=== PATIENT | male | born 1985 | race African-American/Black ===

== ENCOUNTER 2018-05-09 13:30 | Emergency (ER) | payer OTHER, MEDICAID, SELFPAY ==
[2018-05-09 13:39] VITALS: BP 122/79; PULSE 79; RESP 16; TEMP 37; O2SAT 99; BMI 36.2
--- NOTE | 2018-05-09 14:17 | ED_ITS ---
HPI - URI/Sore Throat <FELIPE Scruggs - Last Filed: 05/09/18 22:06> General Chief Complaint: Upper Respiratory Symptoms Stated Complaint: SORE THROAT Time Seen by Provider: 05/09/18 14:16 Source: patient Mode of arrival: ambulatory Limitations: no limitations History of Present Illness HPI Narrative: 32-year-old male that is healthy that is a part-time smoker here for complaint of having sore throat over the past day. He states he has had some chills although he does not know if he has had a fever. has had similar symptoms. He reports redness and swelling to his tonsillar area. He reports increased pain with swallowing. Positive p.o. intake. No shortness of breath. No distress. He denies any known contacts other than his with similar symptoms. No other concerns or complaints. Related Data Previous Rx's Medication Instructions Recorded ciprofloxacin HCl [Cipro] 500 mg PO BID #14 tab 08/11/17 amoxicillin 500 mg PO BID #20 tab 05/09/18 Allergies Allergy/AdvReac Type Severity Reaction Status Date / Time No Known Drug Allergies Allergy Verified 05/09/18 13:37 Review of Systems <FELIPE Scruggs - Last Filed: 05/09/18 22:06> Constitutional Denies chills, Denies fever(s), Denies lethargy and Denies weakness Eyes Denies change in vision, Denies eye discharge, Denies irritation and Denies loss of vision ENT Ears, Nose, Mouth, and Throat: Reports sore throat Cardiovascular Denies chest pain, Denies irregular heart rhythm, Denies lightheadedness, Denies palpitations, Denies dyspnea, Denies dyspnea on exertion and Denies orthopnea Respiratory Denies cough, Denies dyspnea, Denies dyspnea on exertion and Denies wheezing Gastrointestinal Gastrointestinal: Denies abdominal pain, Denies change in bowel habits, Denies diarrhea, Denies nausea and Denies vomiting Genitourinary Denies hematuria, Denies flank pain, Denies urinary incontinence and Denies urinary urgency Musculoskeletal Denies back pain, Denies muscle weakness, Denies numbness and Denies tingling Integumentary/Breasts Denies pruritus, Denies erythema, Denies rash and Denies wounds Neurologic Denies confusion, Denies loss of vision, Denies numbness, Denies tingling and Denies weakness Psychiatric Denies anxiety, Denies confusion, Denies depression, Denies homicidal ideation and Denies suicidal ideation Endocrine Denies palpitations Hematologic/Lymphatic Denies easy bruising Allergic/Immunologic Denies wheezing Exam <FELIPE Scruggs - Last Filed: 05/09/18 22:06> Initial Vital Signs Initial Vital Signs: Vital Signs Temperature 98.6 F 05/09/18 13:39 Pulse Rate 79 05/09/18 13:39 Respiratory Rate 16 05/09/18 13:39 Blood Pressure 122/79 05/09/18 13:39 Pulse Oximetry 99 05/09/18 13:39 Const General: cooperative and well developed Nutritional Appearance: well nourished Orientation: alert, awake, oriented x3 and not confused HENMT Mouth: oral mucosae normal and moist mucous membranes Throat: abnormal tonsil (Bilateral tonsillar swelling) and posterior oropharynx abnormal erythema Eyes Conjunctivae: conjunctivae normal Sclera: sclerae normal Pupils: PERRL EOM: EOM intact bilaterally Neck Neck: normal visual inspection, trachea midline, No lymphadenopathy, No midline deformity and No JVD Lymphatic: No lymphedema Resp Effort & Inspection: normal respiratory effort, able to speak in complete sentences, no respiratory distress and no use of accessory muscles Auscultation: clear to auscultation bilaterally, no rales, no rhonchi and no wheezes Cardio Rate: regular rate Rhythm: regular rhythm Heart Sounds: no click, no gallops, no murmurs and no rubs Pulses: normal peripheral pulses Skin General: no rashes or lesions noted, No jaundice and No petechiae Neuro General: alert, oriented x3, gait normal and no focal motor deficits Speech: speech normal <Wilder Pastrana DO - Last Filed: 05/10/18 07:06> Initial Vital Signs Initial Vital Signs: Vital Signs Temperature 98.6 F 05/09/18 13:39 Pulse Rate 79 05/09/18 13:39 Respiratory Rate 16 05/09/18 13:39 Blood Pressure 122/79 05/09/18 13:39 Pulse Oximetry 99 05/09/18 13:39 Course <FELIPE Scruggs - Last Filed: 05/09/18 22:06> Vital Signs - 8 hr 05/09/18 15:09 Temperature 99.3 F Pulse Rate 77 Respiratory Rate 18 Blood Pressure 136/87 Pulse Oximetry 100 <Wilder Pastrana DO - Last Filed: 05/10/18 07:06> Vital Signs - 8 hr 05/09/18 15:09 Temperature 99.3 F Pulse Rate 77 Respiratory Rate 18 Blood Pressure 136/87 Pulse Oximetry 100 MDM - URI/Sore Throat <FELIPE Scrgugs - Last Filed: 05/09/18 22:06> Lab Data Point of Care Testing Rapid Strep A Positive MDM Narrative Medical decision making narrative: Rapid strep test was obtained and was positive for strep. He is placed on amoxicillin. Plenty of fluids and rest. [id number] Tylenol or Motrin as needed for any discomfort. Salt water gargles few times a day to help with inflammation to the throat area. Follow up with primary care provider next week for re-evaluation. Good hand hygiene no sharing of utensils, and replace toothbrush. For any worsening symptoms return to the emergency room. <Wilder Pastrana DO - Last Filed: 05/10/18 07:06> Lab Data Point of Care Testing Rapid Strep A Positive Discharge Plan Departure Patient Disposition: Home Clinical Impression: Acute streptococcal pharyngitis Discharge Date/Time: 05/09/18 15:10 Interventions: ED Discharge Assessment Last Done: 05/09/18 15:09 Instructions: DI for Strep Throat Activity Restrictions/Additional Instructions: Rapid strep test was obtained and was positive for strep. You are placed on an antibiotic called amoxicillin use as directed. Plenty of fluids and rest. Over -the-counter Tylenol or Motrin as needed for any discomfort. Salt water gargles few times a day to help with inflammation to the throat area. Follow up with primary care provider next week for re-evaluation. Good hand hygiene no sharing of utensils, and replace toothbrush. For any worsening symptoms return to the emergency room. Prescriptions: New amoxicillin 500 mg tablet 500 mg PO BID Qty: 20 RF: 0 No Action ciprofloxacin HCl [Cipro] 500 MG tablet 500 mg PO BID Qty: 14 RF: 0 Referrals: Susy Nance MD [Primary Care Provider] - <Wilder Pastrana DO - Last Filed: 05/10/18 07:06> Cosign ED Attending Jerzyature Attestation: I was available for consultation during this patient's emergency department encounter
[2018-05-09 15:09] VITALS: BP 136/87; PULSE 77; RESP 18; TEMP 37.4; O2SAT 100
== END 2018-05-09 15:10 | disposition home or self-care (01) ==
PROVIDERS: Emergency Provider Nurse Practitioner Family; PCP Family Medicine
DX: J02.0 Streptococcal pharyngitis (principal)
CPT/HCPCS: 87880; 99282; 99283